=== PATIENT | female | born 1990 | race Hispanic/Latino ===

== ENCOUNTER 2023-07-25 12:41 | Emergency (ER) | payer OTHER ==
--- OUTSIDE RECORDS SUMMARY | 2023-07-25 12:56 | XMS REPORT | Continuity of Care Document ---
:1990 Author Organization [facility] t Address [address] [facility]. [address] [place] [address] Care Team Providers Name Role Phone PCP, PATIENT DOES NOT HAVE A Primary Care Physician Unavaila BETTINA Garcia Attending Clinician Unavailable Cayden Bello MD Attending Clinician Shandra Cochran MD Attending Clinician Gorge Jenkins Attending Clinician VIKI JONES Attending Clinician Unavailable GORGE BURNS Attending Clinician Unavailable Viki Jones DO Attending Clinician Doctor Unassigned, [place] Attending Clinician Unavailable Niyah Lee Attending Clinician Shandra Cochran MD Admitting Clinician VIKI JONES Admitting Clinician Unavailable Payers Payer Name Policy Type Policy Number Effective Date Expiration Date Jacy deena [facility] 9 [id number] 2022 00:00:00 SILVER: HMO PLASTIC EXTRUDING MACHINE OPERATOR [address] [facility] - [id number] 2013 00:00:00 OUT OF STATE Problems Condition Condition Condition Status Onset Resolution Last Treating Co mments Source Name Details Category Date Date Treatment Clinician Date History of History of Disease Active Overview : Univers liver liver 9-18 Formattin ity of cancer cancer 00:00: g of this [place] 00 note Medical might be Branch different from the original. Patient has large scar on abdomen. States had liver cancer as a child and required open surgery to remove cysts from her liver. Rubella Rubella Disease Active Univers non-immune non-immune 01-26 it y of status, status, 00:00: [place] antepartum antepartum 00 Dc dical Branch Allergies, Adverse Reactions, Alerts Allergy Allergy Status Severity Reaction(s) Onset Inactive Treating Comm ents Source Name Type Date Date Clinician NO KNOWN Drug Active Univers ALLERGIE Class ity of S [facility] Social History Social Habit Start Date Stop Date Quantity Comments Source Sexual orientation Lillian Edmondsabe - External Exposure to 2022-01-03 2022-01-13 Not sure [facility]-CoV-2 (event) 00:00:00 11:18:00 [facility] Alcohol intake 2022-01-13 2022-01-13 Current University 00:00:00 00:00:00 non-drinker of [facility] alcohol Branch (finding) Tobacco use and 2015-01-24 2015-01-24 [facility] 00:00:00 [facility] Sex Ass[birth year] At [birth year] Lillian walden - 00:00:00 00:00:00 External Smoking Status Start Date Stop Date Source Tobacco smoking consumption Kaela Velez - External unknown Never smoker [facility] Medications Ordered Filled Start Stop Current Ordering Indication Dosage Frequency Signature Comments Components Source Medication Medication Date Date Medication? Clinician (SIG) Name Name Pseudoeph-B 2022-09 Yes [id number] 10mL Q.25D Take 10 mL Lillian romphen-DM 1-22 by mouth 4 Sey bold 30-2-10 00:00: times - MG/5ML oral 00 daily as Exte rna Syrup needed. l Oseltamivir 2022-09- Yes [id number] 75mg Take 1 Lillian Phosphate -23 07-28 capsule Seybol d (Tamiflu) 00:00: 05:59 (75 mg - 75 MG oral 00 :00 total) by Exte rna Capsule mouth 2 l times daily for 5 days. moxifloxaci 2021- No [id number] 1[drp] Place 1 Univers n (VIGAMOX) 01-13 9100 Drop in ity of 0.5 % 00:00: 04:59 left eye [place] ophthalmic 00 :00 every 2 Medica l drops (two) Branch hours for 7 days. cyclopentol 2021- No [id number] 1[drp] Place 1 Univers ate 01-13 9100 Drop in ity of (CYCLOGYL) 00:00: 04:59 left eye 2 [place] 2 % 00 :00 (two) Medical ophthalmic times Branch drops daily for 7 days. moxifloxaci No [id number] 1[drp] Place 1 Univers n (VIGAMOX) 01-13 9100 Drop in ity of 0.5 % 00:00: 04:59 left eye [place] ophthalmic 00 :00 every 2 Medica l drops (two) Branch hours for 7 days. cyclopentol No [id number] 1[drp] Place 1 Univers ate 01-13 9100 Drop in ity of (CYCLOGYL) 00:00: 04:59 left eye 2 [place] 2 % 00 :00 (two) Medical ophthalmic times Branch drops daily for 7 days. casirivimab 2020- No 1200mg 1,200 mg, Univers -imdevimab 05-25 IV ity of 1200 mg in 05:15: 04:48 Infusion, [place] 60 mL NS 00 :00 ONCE, Medical MINI-BAG Administer Branc h over 20 Minutes, On Fri05/25/21 at 0015, For 1 dose
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 &nbs p;
diphenhydrA 2020- No 25mg 25 mg, Uni vers MINE 05-25 Slow IV ity of (BENADRYL) 05:00: 03:52 Push, [place] injection 00 :00 ONCE, 1 Medical 25 mg dose, On Branch 05/25/21 at 0000, STAT iopamidol 2020- No [id number] 100mL 100 mL, Univers (ISOVUE 05-25 Intravenou ity o f 370-500 mL) 04:45: 03:36 s, ONCE, 1 [place] injection 00 :00 dose, On Medica l 100 mL Ximena Branch 05/24/21 at 2345, Routine ondansetron 2020- No 4mg 4 mg, Slow Univers (ZOFRAN 05-25 IV Push, ity of (PF)) 03:00: 02:47 ONCE, 1 [place] injection 4 00 :00 dose, On Medi onur mg Ximena Branch 05/24/21 at 2200, ALBA NaCl 0.9% 2020- No 1000mL at 999 Uni vers (NS) bolus 05-25 mL/hr, ity of infusion 03:00: 04:28 1,000 mL, [place] as 1,000 mL 00 :00 IV Medical Infusion, Branch ONCE, 1 dose, On Ximena 05/24/21 at 2200, STAT ondansetron 0 Yes [id number] 4mg Take 1 Univers (ZOFRAN 05-24 [id number] tablet by ity of ODT) 4 mg 00:00: mouth [place] disintegrat 00 every 8 Medic al ing tablet (eight) Branch hours as needed for Nausea and Vomiting (N/V). benzonatate 0 Yes [id number] 200mg Take 1 Univers 200 mg 05-2400 capsule by ity of capsule 00:00: mouth 3 [place] 00 (three) Medical times Branch daily as needed for Cough for up to 20 doses. ondansetron 0 Yes [id number] 4mg Take 1 Univers (ZOFRAN 05-24 [id number] tablet by ity of ODT) 4 mg 00:00: mouth [place] disintegrat 00 every 8 Medic al ing tablet (eight) Branch hours as needed for Nausea and Vomiting (N/V). benzonatate 0 Yes [id number] 200mg Take 1 Univers 200 mg 9-23 [id number] capsule by ity of capsule 00:00: mouth 3 [place] 00 (three) Medical times Branch daily as needed for Cough for up to 20 doses. ondansetron 2020-0 Yes [id number] 4mg Take 1 Univers (ZOFRAN 9-23 [id number] tablet by ity of ODT) 4 mg 00:00: mouth [place] disintegrat 00 every 8 Medic al ing tablet (eight) Branch hours as needed for Nausea and Vomiting (N/V). benzonatate 2020-0 Yes [id number] 200mg Take 1 Univers 200 mg 9-23 [id number] capsule by ity of capsule 00:00: mouth 3 [place] 00 (three) Medical times Branch daily as needed for Cough for up to 20 doses. ondansetron 2020-0 Yes [id number] 4mg Take 1 Univers (ZOFRAN 9-23 [id number] tablet by ity of ODT) 4 mg 00:00: mouth [place] disintegrat 00 every 8 Medic al ing tablet (eight) Branch hours as needed for Nausea and Vomiting (N/V). benzonatate 2020-0 Yes [id number] 200mg Take 1 Univers 200 mg 9-23 [id number] capsule by ity of capsule 00:00: mouth 3 [place] 00 (three) Medical times Branch daily as needed for Cough for up to 20 doses. ondansetron 2020-0 Yes [id number] 4mg Take 1 Univers (ZOFRAN 9-23 [id number] tablet by ity of ODT) 4 mg 00:00: mouth [place] disintegrat 00 every 8 Medic al ing tablet (eight) Branch hours as needed for Nausea and Vomiting (N/V). benzonatate 2020-0 Yes [id number] 200mg Take 1 Univers 200 mg 9-23 [id number] capsule by ity of capsule 00:00: mouth 3 [place] 00 (three) Medical times Branch daily as needed for Cough for up to 20 doses. ondansetron 2020-0 Yes [id number] 4mg Take 1 Univers (ZOFRAN 9-23 [id number] tablet by ity of ODT) 4 mg 00:00: mouth [place] disintegrat 00 every 8 Medic al ing tablet (eight) Branch hours as needed for Nausea and Vomiting (N/V). benzonatate 0 Yes [id number] 200mg Take 1 Univers 200 mg 9 [id number] capsule by ity of capsule 00:00: mouth 3 [place] 00 (three) Medical times Branch daily as needed for Cough for up to 20 doses. cephALEXin 2018-0 Yes 500mg Take 1 Univ ers (KEFLEX) 8-27 capsule by ity o f 500 mg 00:00: mouth 2 [place] capsule 00 (two) Medical times Branch daily. cephALEXin 2018-0 Yes 500mg Take 1 Univ ers (KEFLEX) 8-27 capsule by ity o f 500 mg 00:00: mouth 2 [place] capsule 00 (two) Medical times Branch daily. cephALEXin 2018-0 Yes 500mg Take 1 Univ ers (KEFLEX) 8-27 capsule by ity o f 500 mg 00:00: mouth 2 [place] capsule 00 (two) Medical times Branch daily. cephALEXin 2018-0 Yes 500mg Take 1 Univ ers (KEFLEX) 8-27 capsule by ity o f 500 mg 00:00: mouth 2 [place] capsule 00 (two) Medical times Branch daily. cephALEXin 2018-0 Yes 500mg Take 1 Univ ers (KEFLEX) 8-27 capsule by ity o f 500 mg 00:00: mouth 2 [place] capsule 00 (two) Medical times Branch daily. cephALEXin 2018-0 Yes 500mg Take 1 Univ ers (KEFLEX) 8-27 capsule by ity o f 500 mg 00:00: mouth 2 [place] capsule 00 (two) Medical times Branch daily. cephALEXin 2018-0 Yes 500mg Take 1 Univ ers (KEFLEX) 8-27 capsule by ity o f 500 mg 00:00: mouth 2 [place] capsule 00 (two) Medical times Branch daily. IBUPROFEN 2016-09 Yes 400mg Take 1 Unive rs 400 mg 1-06 tablet by ity of tablet 00:00: mouth [place] 00 every 6 Medical (six) Branch hours as needed for Pain (scale 1-3). TYLENOL-COD 2016-09 Yes 2{tbl} Take 2 Un anna EINE #3 1-06 tablets by ity of 300-30 mg 00:00: mouth [place] tablet 00 every 4 Medical (four) Branch hours as needed for Pain (scale 4-6). SKELAXIN 2016-09 Yes 800mg Take 1 Univer s 800 mg 1-06 tablet by ity of tablet 00:00: mouth 3 [place] 00 (three) Medical times Branch daily. IBUPROFEN 2016-09 Yes 400mg Take 1 Unive rs 400 mg 1-06 tablet by ity of tablet 00:00: mouth [place] 00 every 6 Medical (six) Branch hours as needed for Pain (scale 1-3). TYLENOL-COD 2016-09 Yes 2{tbl} Take 2 Un anna EINE #3 1-06 tablets by ity of 300-30 mg 00:00: mouth [place] tablet 00 every 4 Medical (four) Branch hours as needed for Pain (scale 4-6). SKELAXIN 2016-09 Yes 800mg Take 1 Univer s 800 mg 1-06 tablet by ity of tablet 00:00: mouth 3 [place] 00 (three) Medical times Branch daily. IBUPROFEN 2016-09 Yes 400mg Take 1 Unive rs 400 mg 1-06 tablet by ity of tablet 00:00: mouth [place] 00 every 6 Medical (six) Branch hours as needed for Pain (scale 1-3). TYLENOL-COD 2016-09 Yes 2{tbl} Take 2 Un anna EINE #3 1-06 tablets by ity of 300-30 mg 00:00: mouth [place] tablet 00 every 4 Medical (four) Branch hours as needed for Pain (scale 4-6). SKELAXIN 2016-09 Yes 800mg Take 1 Univer s 800 mg 1-06 tablet by ity of tablet 00:00: mouth 3 [place] 00 (three) Medical times Branch daily. IBUPROFEN 2016-09 Yes 400mg Take 1 Unive rs 400 mg 1-06 tablet by ity of tablet 00:00: mouth [place] 00 every 6 Medical (six) Branch hours as needed for Pain (scale 1-3). TYLENOL-COD 2016-09 Yes 2{tbl} Take 2 Un anna EINE #3 1-06 tablets by ity of 300-30 mg 00:00: mouth [place] tablet 00 every 4 Medical (four) Branch hours as needed for Pain (scale 4-6). SKELAXIN 2016-09 Yes 800mg Take 1 Univer s 800 mg 1-06 tablet by ity of tablet 00:00: mouth 3 [place] 00 (three) Medical times Branch daily. IBUPROFEN 2016-09 Yes 400mg Take 1 Unive rs 400 mg 1-06 tablet by ity of tablet 00:00: mouth [place] 00 every 6 Medical (six) Branch hours as needed for Pain (scale 1-3). TYLENOL-COD 2016-09 Yes 2{tbl} Take 2 Un anna EINE #3 1-06 tablets by ity of 300-30 mg 00:00: mouth [place] tablet 00 every 4 Medical (four) Branch hours as needed for Pain (scale 4-6). SKELAXIN 2016-09 Yes 800mg Take 1 Univer s 800 mg 1-06 tablet by ity of tablet 00:00: mouth 3 [place] 00 (three) Medical times Branch daily. IBUPROFEN 2016-09 Yes 400mg Take 1 Unive rs 400 mg 1-06 tablet by ity of tablet 00:00: mouth [place] 00 every 6 Medical (six) Branch hours as needed for Pain (scale 1-3). TYLENOL-COD 2016-09 Yes 2{tbl} Take 2 Un anna EINE #3 1-06 tablets by ity of 300-30 mg 00:00: mouth [place] tablet 00 every 4 Medical (four) Branch hours as needed for Pain (scale 4-6). SKELAXIN 2016-09 Yes 800mg Take 1 Univer s 800 mg 1-06 tablet by ity of tablet 00:00: mouth 3 [place] 00 (three) Medical times Branch daily. IBUPROFEN 2016-09 Yes 400mg Take 1 Unive rs 400 mg 1-06 tablet by ity of tablet 00:00: mouth [place] 00 every 6 Medical (six) Branch hours as needed for Pain (scale 1-3). TYLENOL-COD 2016-09 Yes 2{tbl} Take 2 Un anna EINE #3 1-06 tablets by ity of 300-30 mg 00:00: mouth [place] tablet 00 every 4 Medical (four) Branch hours as needed for Pain (scale 4-6). SKELAXIN 2016-09 Yes 800mg Take 1 Univer s 800 mg 1-06 tablet by ity of tablet 00:00: mouth 3 [place] 00 (three) Medical times Branch daily. Vital Signs Vital Name Observation Time Observation Value Comments Source Systolic blood 2022-01-13 20:02:00 130 mm[Hg] Univer sity of pressure [place] [facility] Diastolic blood 2022-01-13 20:02:00 90 mm[Hg] Unive rsity of pressure [place] [facility] Heart rate 2022-01-13 20:02:00 73 /min Universi ty of [place] [facility] Respiratory rate 2022-01-13 20:02:00 15 /min Univ ersity of [place] [facility] Oxygen saturation in 2022-01-13 20:02:00 100 /min University of Arterial blood by [facility] onur Pulse oximetry Branch Body temperature 2022-01-13 18:16:00 36.44 Bren Univ ersity of [place] [facility] Body weight 2022-01-13 18:16:00 95.255 kg Universi ty of [place] [facility] BMI 2022-01-13 18:16:00 37.20 kg/m2 Universi ty of [place] [facility] Systolic blood 2022-01-13 16:21:00 134 mm[Hg] Univer sity of pressure [place] [facility] Diastolic blood 2022-01-13 16:21:00 93 mm[Hg] Unive rsity of pressure [place] [facility] Heart rate 2022-01-13 16:21:00 87 /min Universi ty of [place] [facility] Body temperature 2022-01-13 16:21:00 37.33 Bren Univ ersity of [place] [facility] Respiratory rate 2022-01-13 16:21:00 18 /min Univ ersity of [place] [facility] Body height 2022-01-13 16:21:00 160 cm Universi ty of [place] [facility] Body weight 2022-01-13 16:21:00 95.255 kg Universi ty of [place] [facility] BMI 2022-01-13 16:21:00 37.20 kg/m2 Universi ty of [place] [facility] Oxygen saturation in 2022-01-13 16:21:00 100 /min University of Arterial blood by [facility] Pulse oximetry Branch Heart rate 2021-12-13 16:00:00 90 /min Universi ty of [place] [facility] Respiratory rate 2021-12-13 16:00:00 18 /min Univ ersity of [place] [facility] Oxygen saturation in 2021-12-13 16:00:00 100 /min University of Arterial blood by [facility] onur Pulse oximetry Branch Systolic blood 2021-12-13 16:00:00 127 mm[Hg] Univer sity of pressure [place] [facility] Diastolic blood 2021-12-13 16:00:00 91 mm[Hg] Unive rsity of pressure [place] [facility] Body temperature 2021-12-13 14:46:00 37.17 [facility] 2021-12-13 14:46:00 160 cm Universi ty of [place] Medical [place] Body weight 2021-12-13 14:46:00 95.255 kg Universi [facility] BMI 2021-12-13 14:46:00 37.20 kg/m2 Universi ty [facility] Systolic blood 2021-05-25 05:21:00 141 mm[Hg] Univer sity of pressure [facility] Diastolic blood 2021-05-25 05:21:00 82 mm[Hg] Unive rsity of pressure [facility] Heart rate 2021-05-25 05:21:00 90 /min Universi [facility] Body temperature 2021-05-25 05:21:[address] [facility] Res[facility] rate 2021-05-25 05:21:00 18 /min [facility] Oxygen saturation in 2021-05-25 05:21:00 98 /min [facility] Arterial blood by [facility] Pulse oximetry Branch Body weight 2021-05-25 00:55:00 95.255 kg Universi ty [facility] BMI 2021-05-25 00:55:00 38.41 kg/m2 [facility] Procedures Procedure Date / Time Performed Performing Clinician [facility] e CONSENT/REFUSAL FOR 2022-01-13 19:24:10 Doctor Unassigned, [place] DIAGNOSIS AND Name Medical Branch TREATMENT NOTICE OF PRIVACY 2022-01-13 16:16:40 Doctor Unassigned, No [facility] [place] [place] [facility] Name Medical Branch CONSENT/REFUSAL FOR 2022-01-13 16:15:31 Doctor Unassigned, No Un iversity of [place] DIAGNOSIS AND Name Medical Branch TREATMENT CT 2021-12-13 15:05:39 Viki Jones [facility] MAXILLOFACIAL/MANDIBLE Medical B ranch WO CONTRAST CONSENT/REFUSAL FOR 2021-12-13 14:39:22 Doctor Unassigned, No Un iversity of [place] DIAGNOSIS AND Name Medical Branch TREATMENT CT CHEST PULMONARY 2021-05-25 03:37:38 Niyah Berry [facility] ANGIOGRAM Medical Branch POCT TEST 2021-05-25 02:49:00 Niyah Berry [facility] Medical Branch LIPASE 2021-05-25 02:18:00 Niyah Berry [facility] MAGNESIUM 2021-05-25 02:18:00 Niyah Berry [facility] COMP. METABOLIC PANEL 2021-05-25 02:18:00 Niyah Berry [facility] ([id number]) Medical Branch CBC WITH DIFF 2021-05-25 02:18:00 Niyah Berry [facility] D-DIMER 2021-05-25 02:18:00 Niyah Berry [facility] URINALYSIS 2021-05-25 02:18:00 Niyah Berry [facility] NOTICE OF PRIVACY 2021-05-25 00:43:23 Doctor Unassigned, No Univ [facility] Name [facility] CONSENT/REFUSAL FOR 2021-05-25 00:43:13 [facility] Name [facility] TREATMENT Encounters Start End Encounter Admission Attending Care Care Encounter Source Date/Time Date/Time Type Type Clinicians Facility Department ID 2023-07-23 2023-07-23 Outpatient LILLIAN TRUONG [id number] Lillian 14:00:00 14:00:00 BETTINA pichardo 2022-01-14 2022-01-14 Telephone JOSE Bello 1.2.840.114 [id number] Univers 00:00:00 00:00:00 [employer] Y 350.1.13.10 it y of NATIONAL 4.2.7.2.686 [place] as BANK [id number] [facility] BLDG. 136 Branch 2022-01-13 2022-01-13 Emergency Mopuru, Shandra TRAUMA 1.2.840.1 [id number] Univers 13:20:00 15:11:00 Gorge Burns CENTER 350.1.13.1 0 [place] [id number] [facility] 014 Branch 2022-01-13 2022-01-13 Emergency X KAREN MTSEJAL ERT [id number] Univers 11:24:00 12:15:00 VIKI ity [facility] 2022-01-13 2022-01-13 Emergency X KATY, [facility] ERT [id number] Univers 11:24:00 12:15:00 GORGE ity of [facility] 2022-01-13 2022-01-13 [facility] 1.2.840.114 [id number] Univers 11:24:00 12:15:00 Viki ALMAGUER 350.1.13.10 ity of [place]2.[place] [id number] [address] 2022-01-13 2022-01-13 Orders Doctor LOUIS 1.2.840.114 [id number] Univers 00:00:00 00:00:00 Only Unassigned, ADOLFO 350.1.13.10 ity of [facility] 4.2.7.2.686 [place] [id number] [address] 2021-12-13 2021-12-13 Emergency [facility] E[facility] [id number] Univers 09:50:00 11:24:00 VIKI ity [facility] 2021-12-13 2021-12-13 Emergency [facility] 1.2.840.114 [id number] Univers 09:50:00 11:24:00 Viki ALMAGUER 350.1.13.10 ity of [place]2.[place] [id number] [address] 2021-05-24 2021-05-25 Emergency Niyah Berry [facility] 1.2.840.114 [id number] Univers 20:00:00 00:34:00 Matilde Almaguer 350.1.13.10 i ty of [place]2.[place] [id number] [address] 2021-05-24 2021-05-24 Emergency X [facility] ERT [id number] Univers 19:44:00 19:44:00 ity of [facility] 2021-05-24 2021-05-24 Orders Doctor LOUIS 1.2.840.114 [id number] Univers 00:00:00 00:00:00 Only Unassigned, ADOLFO 350.1.13.10 ity of [place] [facility] 4.2.7.2.686 [place] as [id number] [address] Results Test Description Test Time Test Comments Results Result Comments Source POCT TEST 2021-05-25 02:49:00 Test Item Value Reference Range Interpretation Comme nts POCT PREG (test code = 1605) negative On board controls acceptable with C Line (test code = 3574) yes POCT PREG LOT # (test code = 3575) [id number] POCT PREG TEST DATE (test code = 3576) 08/31/2022 Lab Interpretation (test code = 67887-0) Normal [facility] (33891)2021-05-25 02:42:34 Test Item Value Reference Range Interpretation Comments NA (test code = 141 mmol/L 135-145 6922472326) K (test code = 4.2 mmol/L 3.5-5.0 5279431805) CL (test code = 103 mmol/L 98-108 6513470888) CO2 TOTAL (test code = 25 mmol/L 23-31 1892684869) AGAP (test code = 2-16 9101052276) BUN (test code = 13 mg/dL 7-23 6542677784) GLUCOSE (test code = 128 mg/dL 70-110 H 5806957160) CREATININE (test code = 0.63 mg/dL 0.50-1.04 7536421690) TOTAL BILI (test code = 0.9 mg/dL 0.1-1.1 2148021696) CALCIUM (test code = 10.2 mg/dL 8.6-10.6 2152802448) T PROTEIN (test code = 9.4 g/dL 6.3-8.2 H 6946387238) ALBUMIN (test code = 4.9 g/dL 3.5-5.0 3748431321) ALK PHOS (test code = 76 U/L 34-122 6437641965) ALTv (test code = 54 U/L 5-35 H 1742-6) AST(SGOT) (test code = 43 U/L 13-40 H 4565113364) eGFR (test code = mL/min/1.73m2 8233993896) SANDRA (test code = SANDRA) Association of Glomerular Filtration Rate (GFR) and Staging of Kidney Disease* + --+ --+ ------+| GFR (mL/min/1.73 m2) ?| With Kidney Damage ?| ?Without Kidney Damage+ --------+ --------+ +| ?>90 ?| ?Stage one ?| ? Normal ?+ ---+ ---+ -------+| ?60-89 ?| ?Stage two ?| ? Decreased GFR ? + --+ --+ ------+| ?30-59 ?| ?Stage three ?| ? Stage three ? + --+ --+ ------+| ?15-29 ?| ?Stage four ? | ? Stage four ?+ ---+ ---+ -------+| ?<15 (or dialysis) ? ?| ?Stage five ? | ? Stage five ?+ ---+ ---+ -------+ *Each stage assumes the associated GFR level has been in effect for at least three months. ?Stages 1 to 5, with or without kidney disease, indicate chronic kidney disease. Notes: Determination of stages one and two (with eGFR >59mL/min/1.73 m2) requires estimation of kidney damage for at least three months as defined by structural or functional abnormalities of the kidney, manifested by either:Pathological abnormalities or Markers of kidney damage (including abnormalities in the composition of the blood or urine or abnormalities in imaging tests). Lab Interpretation Abnormal (test code = 55474-3) [facility]2021-[facility] 02:42:34 Test Item Value Reference Range Interpretation Comments MAGNESIUM (test code = 2943440465) 2.1 mg/dL 1.7-2.4 Lab Interpretation (test code = Normal 44460-1) [facility]2021-09-24 02:42:13 Test Item Value Reference Range Interpretation Comments LIPASE (test code = 7715656439) 77 U/L 0-220 Lab Interpretation (test code = Normal 25893-3) [facility]aleD-[id number] 02:38:15 Test Item Value Reference Interpretation Comments Range D-DIMER (test code = See_Comment H [Autom ated 8799590646) message] The system which generated this result transmitted reference range : <0.41 ?g/mL (FEU). The reference range was not used to interpret this result as normal/abnormal . SANDRA (test code = This test may be SANDRA) used in conjunction with a clinical pretest probability (PTP) assessment model to exclude venous thromboembolism (VTE) in patients suspected of deep venous thrombosis (DVT) and pulmonary embolism (PE) A D-Dimer value less than 0.50 ?g/ml (FEU) has a negative predicative value of 96 to 100% (95% CI)and 97 to 100% (95% CI) as an aid in the diagnosis of deep vein thrombosis (DVT) and pulmonary embolism when there is low or moderate pretest probability of PE or DVT. D-Dimer values are expressed in initial fibrinogen equivalent units (FEU)" The assay results should be used with other information, including the clinical context, in forming a diagnosis. Lab Interpretation Abnormal (test code = 82035-8) [facility] WITH [id number] 02:29:54 Test Item Value Reference Range Interpretation Comments WBC (test code = See_Comment [Automated 3316-2) message] The sy stem which generated this result transmitted reference range : 4.30 - 11.10 10*3/?L. The reference range was not used to interpret this result as normal/abnormal . RBC (test code = See_Comment [Automated 086-8) message] The sy stem which generated this result transmitted reference range : 3.93 - 5.25 10*6/?L. The reference range was not used to interpret this result as normal/abnormal . HGB (test code = 14.7 g/dL 11.6-15.0 718-7) HCT (test code = 43.9 % 35.7-45.2 4544-3) MCV (test code = 85.9 fL 80.6-95.5 787-2) MCH (test code = 28.8 pg 25.9-32.8 785-6) MCHC (test code = 33.5 g/dL 31.6-35.1 786-4) RDW-SD (test code = 38.8 fL 39.0-49.9 L 49211-9) RDW-CV (test code = 12.4 % 12.0-15.5 788-0) PLT (test code = See_Comment [Automated 777-3) message] The sy stem which generated this result transmitted reference range : 166 - 358 10*3/ ?L. The reference r sd was not used to interpret this result as normal/abnormal . MPV (test code = 9.7 fL 9.5-12.9 92853-1) NRBC/100 WBC (test See_Comment [Automat ed code = [id number]) message] The system which generated this result transmitted reference range : 0.0 - 10.0 /100 WBCs. The refer ence range was not u sed to interpret th is result as normal/abnormal . NRBC x10^3 (test code <0.01 See_Comment [Auto mated = [id number]) message] The s ystem which generated this result transmitted reference range : 10*3/?L. The reference range was not used to interpret this result as normal/abnormal . GRAN MAT (NEUT) % 77.7 % (test code = 770-8) IMM GRAN % (test code 0.60 % = [id number]) LYMPH % (test code = 15.3 % 736-9) MONO % (test code = 5.8 % 5905-5) EOS % (test code = 0.2 % 713-8) BASO % (test code = 0.4 % 706-2) GRAN MAT x10^3(ANC) 6.27 10*3/uL 1.88-7.09 (test code = [id number]) IMM GRAN x10^3 (test 0.05 10*3/uL 0.00-0.06 code = 8452871067) LYMPH x10^3 (test code 1.24 10*3/uL 1.32-3.29 L = 731-0) MONO x10^3 (test code 0.47 10*3/uL 0.33-0.92 = 742-7) EOS x10^3 (test code = <0.03 0.03-0.39 L 711-2) BASO x10^3 (test code 0.03 10*3/uL 0.01-0.07 = 704-7) Lab Interpretation Abnormal (test code = 36517-7) [facility]
--- NOTE | 2023-07-25 14:03 | RAD REPORT ---
EXAM DESCRIPTION: Libra Chu (2 Views)07/25/2023 1:50 pm CLINICAL HISTORY: Cough COMPARISON: 2009 FINDINGS: The lungs appear clear of acute infiltrate. The heart is normal size IMPRESSION: No acute abnormalities displayed
--- NOTE | 2023-07-25 15:58 | EDPHYS ---
Physician Documentation [facility] Name: Mary Ray Age: 32 yrs Sex: Female : 1990 Arrival Date: 07/25/2023 Time: 12:41 Bed 12 Private MD: ED Physician Olive Mayorga HPI: 07/25 13:20 This 32 yrs old Female presents to ER via Ambulatory with complaints of cp Wheezing > 1 Year. 13:20 The patient presents to the emergency department with wheezing, the patient was cp reported to have audible wheezing. Onset: The symptoms/episode began/occurred last night. Associated signs and symptoms: Pertinent positives: fever, sore throat. Patient reports diagnosed with flu 2-3 days ago. Historical: - Allergies: 13:14 No Known Allergies; cm10 - PMHx: 13:14 None; cm10 - Immunization history:: Adult Immunizations unknown. - Social history:: Smoking status: Patient denies any tobacco usage or history of. ROS: 13:25 Constitutional: Positive for fever, cp 13:25 Eyes: Negative for injury, pain, redness, and discharge, cp 13:25 ENT: Positive for sore throat, Negative for drainage from ear(s), ear pain, difficulty swallowing, difficulty handling secretions, 13:25 Cardiovascular: Negative for chest pain, palpitations, 13:25 Respiratory: Positive for cough, "sounds productive", wheezing, 13:25 Abdomen/GI: Negative for abdominal pain, vomiting, diarrhea, constipation, 13:25 Neuro: Negative for altered mental status, dizziness, headache, weakness, 13:25 All other systems are negative, Exam: 13:30 Constitutional: The patient appears in no acute distress, alert, awake, non-toxic, well cp developed, well nourished, obese, 13:30 Head/Face: Normocephalic, atraumatic. cp 13:30 Eyes: Periorbital structures: appear normal, Conjunctiva: normal, no exudate, no injection, Sclera: no appreciated abnormality, Lids and lashes: appear normal, bilaterally, 13:30 ENT: External ear(s): are unremarkable, Ear canal(s): are normal, clear, TM's: dullness, bilaterally, Nose: is normal, Mouth: Lips: moist, Oral mucosa: moist, Posterior pharynx: Airway: no evidence of obstruction, patent, Tonsils: with erythema, mild enlargement, no exudate, erythema, that is mild, 13:30 Neck: ROM/movement: is normal, is supple, without pain, no range of motions limitations, no meningismus, no nuchal rigidity, 13:30 Chest/axilla: Inspection: normal, 13:30 Cardiovascular: Rate: tachycardic, Rhythm: regular, 13:30 Respiratory: the patient does not display signs of respiratory distress, Respirations: normal, no use of accessory muscles, no retractions, labored breathing, is not present, Breath sounds: decreased breath sounds, are not appreciated, stridor, is not appreciated, wheezing: is not appreciated, 13:30 Abdomen/GI: Exam negative for discomfort, distension, guarding, Inspection: abdomen appears normal, 13:30 Skin: no rash present. Vital Signs: 13:12 BP 132 / 92; Pulse 115; Resp 18; Temp 97.5; Pulse Ox 100% ; Weight 92.08 kg; Height 5 cm10 ft. 3 in. ; 17:00 BP 130 / 88; Pulse 100; Resp 20; Temp 99; Pulse Ox 100% ; kb3 13:12 Body Mass Index 35.96 (92.08 kg, 160.02 cm) cm10 MDM: 13:15 Patient medically screened. 14:00 Differential diagnosis: reactive airway, URI, pneumonia. 15:56 Data reviewed: vital signs, nurses notes, lab test result(s), radiologic studies, plain cp films. 15:56 I considered the following discharge prescriptions or medication management in the emergency department Medications were administered in the Emergency Department. See MAR. Independent interpretation of the following test(s) in the Emergency Department X-Ray: My interpretation is images of chest negative for focal pneumonia. Counseling: I had a detailed discussion with the patient and/or guardian regarding the historical points, exam findings, and any diagnostic results supporting the discharge/admit diagnosis, lab results, radiology results, to return to the emergency department if symptoms worsen or persist or if there are any questions or concerns that arise at home. Response to treatment: the patient's symptoms have mildly improved after treatment, and as a result, I will discharge patient. 07/25 13:15 Order name: COVID-19 SARS RT PCR; Complete Time: 15:55 07/25 13:15 Order name: Influenza Screen (a \\T\\ B); Complete Time: 15:55 cp 07/25 15:56 Interpretation: Reviewed. cp 07/25 13:15 Order name: Strep; Complete Time: 15:55 cp 07/25 15:55 Interpretation: Reviewed. cp 07/25 13:15 Order name: XRAY Chest Pa And Lat (2 Views); Complete Time: 14:21 cp 07/25 14:21 Interpretation: Report reviewed. cp Administered Medications: 16:44 Drug: Ibuprofen PO 800 mg PO once Route: PO; kb3 Disposition Summary: 07/25/23 15:57 Discharge Ordered Notes: Location: Home cp Problem: new cp Symptoms: have improved cp Condition: Stable cp Diagnosis - Streptococcal pharyngitis cp - Cough cp Followup: cp - With: Private Physician - When: 2 - 3 days - Reason: Worsening of condition Discharge Instructions: - Discharge Summary Sheet cp - Strep Throat, Adult cp - Cough, Adult cp Forms: - Medication Reconciliation Form cp - Thank You Letter cp - Antibiotic Education cp - Prescription Opioid Use cp - Patient Portal Instructions cp - Leadership Thank You Letter cp Prescriptions: - Bromfed DM 2-30-10 mg/5 mL Oral syrup - administer 10 milliliter ORAL route every 6 hours as needed for cough; 240 cp milliliter; Refills: 0, Product Selection Permitted - albuterol sulfate 90 mcg/actuation Inhalation Aerosol Powder, Breath Activated - administer 1 inhalation INHALATION route every 4 to 6 hours As needed; 1 unit; cp Refills: 0, Product Selection Permitted - Augmentin 875-125 mg Oral Tablet - take 1 tablet ORAL route every 12 hours for 10 days; 20 tablet; Refills: 0, cp Product Selection Permitted Signatures: Dispatcher [employer] EDDE Edwin Otero PA PA cp Kylie Jeffers RN RN kb3 Dinaa Sr RN RN cm10 Corrections: (The following items were deleted from the chart) 07/26 09:05 09:04 Constitutional: Positive for fever, cp cp
--- NOTE | 2023-07-25 15:58 | ER ---
[facility] Name: Mary Ray Age: 32 yrs Sex: Female : 1990 Arrival Date: 07/25/2023 Time: 12:41 Bed 12 Private MD: Diagnosis: Streptococcal pharyngitis;Cough Presentation: 07/25 13:12 Chief complaint: Patient states: wheezing onset last night. Pt states that she was cm10 diagnosed with the flu 2-3 days ago. Pt also reports productive cough. Coronavirus screen: Vaccine status: Patient reports being unvaccinated. Ebola Screen: Patient denies travel to an Ebola-affected area in the 21 days before illness onset. No symptoms or risks identified at this time. Initial Sepsis Screen: Does the patient meet any 2 criteria? No. Patient's initial sepsis screen is negative. Does the patient have a suspected source of infection? No. Patient's initial sepsis screen is negative. Risk Assessment: Do you want to hurt yourself or someone else? Patient reports no desire to harm self or others. Onset of symptoms was July 25, 2023. 13:12 Method Of Arrival: Ambulatory cm10 13:12 Method Of Arrival: Ambulatory cm10 13:12 Acuity: CLARI 4 cm10 Historical: - Allergies: 13:14 No Known Allergies; cm10 - PMHx: 13:14 None; cm10 - Immunization history:: Adult Immunizations unknown. - Social history:: Smoking status: Patient denies any tobacco usage or history of. Screenin:00 [facility] ED Fall Risk Assessment (Adult) History of falling in the last 3 months, kb3 including since admission No falls in past 3 months (0 pts). Abuse screen: Denies threats or abuse. Denies injuries from another. Nutritional screening: No deficits noted. Tuberculosis screening: No symptoms or risk factors identified. Assessment: 15:45 General: Appears in no apparent distress. uncomfortable, Behavior is calm, cooperative. kb3 15:45 Pain: Complains of pain in uvula, left aspect of posterior pharynx and right aspect of kb3 posterior pharynx Pain does not radiate. Pain currently is 7 out of 10 on a pain scale. Quality of pain is described as sharp, stinging. Respiratory: Airway is patent Respiratory effort is even, unlabored, Breath sounds are clear bilaterally. Vital Signs: 13:12 BP 132 / 92; Pulse 115; Resp 18; Temp 97.5; Pulse Ox 100% ; Weight 92.08 kg; Height 5 cm10 ft. 3 in. ; 17:00 BP 130 / 88; Pulse 100; Resp 20; Temp 99; Pulse Ox 100% ; kb3 13:12 Body Mass Index 35.96 (92.08 kg, 160.02 cm) cm10 ED Course: 12:42 Patient arrived in ED. as 12:49 Edwin Otero PA is PHCP. cp 12:49 Olive Mayorga MD is Attending Physician. cp 13:14 Triage completed. cm10 13:14 Arm band placed on Patient placed in an exam room. cm10 13:50 XRAY Chest Pa And Lat (2 Views) In Process Unspecified. EDMS 14:12 Strep Sent. bc6 14:12 Influenza Screen (a \T\ B) Sent. bc6 14:12 COVID-19 SARS RT PCR Sent. 6 17:00 Patient has correct armband on for positive identification. Bed in low position. Call kb3 light in reach. Provided Education on: plan of care. 17:00 No provider procedures requiring assistance completed. Patient did not have IV access kb3 during this emergency room visit. Administered Medications: 16:44 Drug: Ibuprofen PO 800 mg PO once Route: PO; kb3 Medication: 17:00 VIS not applicable for this client. kb3 Outcome: 15:57 Discharge ordered by MD. cp 17:15 Discharged to home ambulatory, kb3 17:15 Condition: stable kb3 17:15 Discharge instructions given to patient, Instructed on discharge instructions, follow up and referral plans. Demonstrated understanding of instructions, follow-up care, medications, Prescriptions given X 3, 17:28 Patient left the ED. kb3 Signatures: Dispatcher [employer] Zoila Delarosa as Edwin Otero PA PA cp Kylie Jeffers, RN RN kb3 Preeti Ball 6 Diana Sr RN RN cm10
[2023-07-25] MEDS ORDERED: IBUPROFEN 400 MG TAB ONE (16:55)
[2023-07-25 17:50] VITALS: O2SAT 100
[2023-07-25 17:52] VITALS: BP 130/88; TEMP 99
== END 2023-07-25 17:28 | disposition home or self-care (01) ==
LOC: ER 12:41
DX: J02.0 Streptococcal pharyngitis (principal); R05.9 Cough, unspecified; Z11.52 Encounter for screening for COVID-19
CPT/HCPCS: 71046; 87081; 87635; 87804; 99284